=== PATIENT | female | born 1945 | race Caucasian/White ===

== ENCOUNTER → 2023-01-10 13:37 | Outpatient (BNVA) | payer MEDICARE, SELFPAY | PROVIDERS: Visit Provider Podiatrist Foot & Ankle Surgery | DX: I73.9 Peripheral vascular disease, unspecified (principal); B35.1 Tinea unguium; L84 Corns and callosities; R60.9 Edema, unspecified | CPT/HCPCS: 11055; 99204 ==

== ENCOUNTER → 2023-02-02 14:39 | Outpatient (BNVA) | payer MEDICARE, SELFPAY | PROVIDERS: Visit Provider Internal Medicine | DX: R07.9 Chest pain, unspecified (principal); I48.91 Unspecified atrial fibrillation | CPT/HCPCS: 93005; 99204 ==

== ENCOUNTER → 2023-02-09 14:30 | Outpatient (BNVA) | payer MEDICARE, SELFPAY | PROVIDERS: Referring Provider Dermatology; Visit Provider Specialist | DX: M17.12 Unilateral primary osteoarthritis, left knee | CPT/HCPCS: 73562; 99204 ==

== ENCOUNTER → 2023-03-30 09:38 | Outpatient (BNVA) | payer MEDICARE, SELFPAY | PROVIDERS: PCP Family Medicine; Visit Provider Internal Medicine Rheumatology | DX: M05.79 Rheumatoid arthritis with rheumatoid factor of multiple sites without organ or systems involvement (principal); Z79.899 Other long term (current) drug therapy; Z71.85 Encounter for immunization safety counseling | CPT/HCPCS: 99204 ==

== ENCOUNTER 2023-05-21 06:31 | Inpatient (IN) | payer MEDICARE, SELFPAY ==
[2023-05-21] VITALS (13 sets, daily range): BP systolic 108–135; BP diastolic 71–96; PULSE 73–145; RESP 16–27; TEMP 36.3–37.2; O2SAT 88–97; BMI 44.1
--- NOTE | 2023-05-21 06:33 | XRR_ITS ---
PROCEDURE INFORMATION: Exam: XR Chest Exam date and time: 05/21/2023 6:50 AM Age: 78 years old Clinical indication: Cough and dyspnea; Additional info: Dyspnea/cough TECHNIQUE: Imaging protocol: Radiologic exam of the chest. Views: 1 view. COMPARISON: No relevant prior studies available. FINDINGS: Lungs: See Soft tissues finding. Pleural spaces: Unremarkable. No pleural effusion. No pneumothorax. Heart/Mediastinum: Heart and mediastinum are normal. Bones/joints: Unremarkable. Soft tissues: Elevated left hemidiaphragm versus large hernia. Atelectasis or infiltrate in the left lower lobe. XR/XR chest 1V portable [id number] IMPRESSION: Large diaphragmatic hernia probably present.
--- NOTE | 2023-05-21 06:34 | W.ED.GENADLT ---
HPI - General Adult General: Chief complaint: Arrhythmia/Palpitations Stated complaint: AMS Time Seen by Provider: 05/21/23 06:33 Source: patient Mode of arrival: EMS History of Present Illness: 78-year-old female history of atrial fibrillation and congestive heart failure presents emergency room via EMS from a [facility]. Heart rates in the 140s consistently. She is awake and alert was able to tell me the last couple of days she has been increasingly short of breath [facility] found her to have an oxygen saturation of 88% on room air and then decreased even further to 7576%. She was given 3 L by nasal cannula and improved to 92% she is now requiring 6 L by nasal cannula to maintain sats at 92 to 93%. Patient is awake and alert she denies any chest pain. She has been receiving her usual metoprolol on a regular basis and despite this is now in A-fib with RVR. Onset (ago): day(s) Relieving factors: other (Oxygen) Exacerbating factors: none Associated symptoms: Reports dyspnea, malaise, short of breath and weakness; Deny chest pain, confusion, cough, diaphoresis, decreased appetite, fevers/chills, headache(s), nausea, rash, palpitations, seizures, syncope, vomiting or other Review of Systems Const: Reports: fatigue and malaise; Denies: fever(s), chills or diaphoresis Card: Reports: dyspnea on exertion and orthopnea; Denies: chest pain, palpitations or syncope Resp: Reports: dyspnea GI: Denies: abdominal pain, nausea or vomiting : Denies: dysuria, urinary frequency or urinary urgency Musc: Denies: neck pain or back pain Skin/Breast: Denies: rash Neuro: Denies: headache(s) or confusion [facility] ED PFSH: Medical History (Updated 05/21/23 @ 09:13 by Chirag Kelsey DO) (HFpEF) heart failure with preserved ejection fraction Arthritis Atrial fibrillation Hiatal hernia High risk medication use History of hypertension Hyperlipidemia Immunization counseling Seropositive rheumatoid arthritis of multiple sites Surgical History H/O splenectomy History of hip replacement Family History Other CAD (coronary artery disease) Cancer Hyperlipidemia Denies family history of Rheumatoid arthritis Diabetes Lupus Lung disease Hypertension Stroke Physical Exam Const: GENERAL APPEARANCE: cooperative and comfortable ORIENTATION/CONSCIOUSNESS: Yes awake, Yes oriented to person, Yes oriented to place and Yes oriented to time HENMT: COMMON NORMALS: normocephalic, atraumatic and hearing grossly normal bilaterally HEAD & SCALP: normocephalic and atraumatic Resp: COMMON NORMALS: normal respiratory effort, No retractions and No use of accessory muscles AUSCULTATION: crackles Cardio: RATE: tachycardic RHYTHM: abnormal rhythm irregularly irregular GI: COMMON NORMALS: Soft to palpation and No hepatosplenomegaly present AUSCULTATION: Yes normoactive bowel sounds PALPATION: Yes Soft to palpation, No Tenderness to palpation present (GI), No Guarding due to palpation present (GI) and Yes No hepatosplenomegaly present Extremity: COMMON NORMALS: normal to inspection, capillary refill normal, no clubbing, cyanosis or edema, no calf tenderness and no pedal edema Neuro: SENSORIUM/ORIENTATION: Yes oriented to person, Yes oriented to place and Yes oriented to time Skin: COMMON NORMALS: no rashes or lesions noted GENERAL SKIN EXAM: no rashes or lesions noted Course Vital Signs: Vital signs: Vital Signs Temperature 97.4 F L 05/21/23 06:32 Pulse Rate 74 05/21/23 08:13 Respiratory Rate 18 05/21/23 08:13 Blood Pressure 117/96 05/21/23 06:43 Pulse Oximetry 97 05/21/23 08:13 Oxygen Delivery Me thod Oxymask 05/21/23 08:13 Oxygen Flow Rate 6 05/21/23 06:43 [facility] - General Adult Medical Decision Making A-fib with RVR as well as acute kidney injury. She is also developed some heart failure second to Ho to her A-fib. She is having increased oxygen requirement. We will admit continue on Cardizem drip which now has rate controlled discussed Dr. Mcfarland orders written Medical Records I reviewed the patient's medical records. Lab Data I reviewed the patient's lab results. 05/21/23 06:40 05/21/23 06:40 Radiology Impressions Chest X-Ray 05/21/23 06:33 IMPRESSION: Large diaphragmatic hernia probably present. Laboratory Results WBC 15.31 10^3/uL (3.29-11.43) H 05/21/23 06:40 RBC 4.81 10^6/uL (3.85-5.65) 05/21/23 06:40 Hgb 14.70 g/dL (11.27-16.99) 05/21/23 06:40 Hct 47.4 % (36-47) H 05/21/23 06:40 MCV 98.5 fl (85-98) H 05/21/23 06:40 MCH 30.6 pg (27-33) 05/21/23 06:40 MCHC 31.0 g/dL (30-55) 05/21/23 06:40 RDW 13.8 % (12.1-15.1) 05/21/23 06:40 Plt Count 283 10^3/cmm (157-399) 05/21/23 06:40 MPV 11.0 fL (7.4-10.4) H 05/21/23 06:40 Neut % (Auto) 81.1 % 05/21/23 06:40 Lymph % (Auto) 9.1 % 05/21/23 06:40 [place] % (Auto) 8.9 % 05/21/23 06:40 Eos % (Auto) 0.1 % 05/21/23 06:40 Baso % (Auto) 0.2 % 05/21/23 06:40 Neut # (Auto) 12.42 10^3/uL (1.8-7.7) H 05/21/23 06:40 Lymph # (Auto) 1.4 10^3/uL (0.8-4.8) 05/21/23 06:40 [place] # (Auto) 1.4 10^3/uL (0.2-0.9) H 05/21/23 06:40 Eos # (Auto) 0.0 10^3/uL (0.0-0.8) 05/21/23 06:40 Baso # (Auto) 0.0 10^3/uL (0.0-0.1) 05/21/23 06:40 Nucleated RBC % (auto) 0.7 % 05/21/23 06:40 Nucleated RBCs # 0.1 /100WBC 05/21/23 06:40 Sodium 137 mmol/L (136-145) 05/21/23 06:40 Potassium 5.5 mmol/L (3.5-5.1) H 05/21/23 06:40 Chloride 94 mmol/L (98-107) L 05/21/23 06:40 Carbon Dioxide 30 mmol/L (22-29) H 05/21/23 06:40 Anion Gap 18.5 (5-19) 05/21/23 06:40 BUN 43 mg/dL (8-23) H 05/21/23 06:40 Creatinine 2.8 mg/dL (0.5-0.9) H 05/21/23 06:40 GFR Calculation Not Reportable 05/21/23 06:40 Glucose 106 mg/dL (65-115) 05/21/23 06:40 Calculated Osmolality 295 mOsm/kg (285-295) 05/21/23 06:40 Calcium 9.1 mg/dL (8.5-10.5) 05/21/23 06:40 Total Bilirubin 0.5 mg/dL (0.15-1.2) 05/21/23 06:40 AST 347 U/L (0-32) H 05/21/23 06:40 ALT 316 U/L (0-33) H 05/21/23 06:40 Alkaline Phosphatase 105 U/L (35-105) 05/21/23 06:40 Total Protein 7.2 g/dL (6.6-8.7) 05/21/23 06:40 Albumin 3.8 g/dL (3.5-5.2) 05/21/23 06:40 Globulin 3.4 g/dL (1.3-4.6) 05/21/23 06:40 Urine Color Dark yellow (Yellow) 05/21/23 08:17 Urine Appearance Sl hazy (CLEAR) A 05/21/23 08:17 Urine pH 5 (5-7) 05/21/23 08:17 Ur Specific [place] 1.025 (1.005-1.030) 05/21/23 08:17 Urine Protein Trace (Negative) 05/21/23 08:17 Urine Glucose (UA) Norm (Normal) 05/21/23 08:17 Urine Ketones 1+ (Negative) H 05/21/23 08:17 Urine Blood Neg (Negative) 05/21/23 08:17 Urine Nitrate Negative (Negative) 05/21/23 08:17 Urine Bilirubin 2+ (Negative) H 05/21/23 08:17 Urine Urobilinogen 4 mg/dL (Negative) H 05/21/23 08:17 Ur Leukocyte Esterase Trace (Negative) H 05/21/23 08:17 Urine RBC 0-4 /hpf (0-2) H 05/21/23 08:17 Urine WBC 5-10 /hpf (0-5) H 05/21/23 08:17 Ur Squamous Epith Cells 10-15 /hpf (0-5) H 05/21/23 08:17 Calcium Oxalate Crystal 5-10 /hpf H 05/21/23 08:17 Amorphous Sediment 2+ /hpf 05/21/23 08:17 Urine Bacteria 1+ /hpf (NONE) H 05/21/23 08:17 Hyaline Casts 5-10 /lpf H 05/21/23 08:17 Urine Yeast 1+ /hpf H 05/21/23 08:17 All radiology interpretation(s) finalized by discharge Discharge Plan Discharge Patient Disposition: Admitted As Inpatient Clinical Impression: Atrial fibrillation, (HFpEF) heart failure with preserved ejection fraction, Acute kidney injury Condition: Stable Prescriptions: No Action hydrocodone-acetaminophen 10-325 mg tablet 1 tab PO Q6H potassium chloride 10 mEq tablet,ER particles/crystals 10 meq PO DAILY@08 folic acid 1 mg tablet 1 mg PO DAILY Qty: 30 3RF gabapentin 300 mg capsule 300 mg PO QID metoprolol tartrate 25 mg tablet 25 mg PO BID@08,20 apixaban 5 mg tablet 5 mg PO BID Lasix 40 mg Tablet 40 mg PO DAILY@08 loperamide [Imodium] 2 mg Capsule 2 mg PO Q6H PRN (Reason: Diarrhea) ondansetron HCl [Zofran] 4 mg Tablet 4 mg PO Q4H PRN (Reason: Nausea And Vomiting) Robitussin 100 mg/5 mL Liquid 200 mg PO Q4H PRN (Reason: Cough) triamcinolone acetonide 0.1 % Cream 1 applic TOPICAL BID Rx Instructions: aaa of lle melatonin 1 mg Tablet 1 mg PO BEDTIME methotrexate sodium 2.5 mg tablet 20 mg PO Q7D Rx Instructions: (8 tabs) hydroxychloroquine 200 mg tablet 200 mg PO DAILY@08 multivitamin Tablet 1 tab PO DAILY@08 albuterol sulfate 90 mcg/actuation Hfa Aerosol Inhaler 2 puff INHALATION Q6H PRN (Reason: Shortness Of Breath) silver sulfadiazine 1 % Cream 1 applic TOPICAL DAILY@08 Milk of Magnesia 400 mg/5 mL Suspension 30 ml PO DAILY PRN (Reason: Constipation) Dulcolax (bisacodyl) 10 mg Suppository 10 mg WV DAILY PRN (Reason: Constipation) Fleet Enema 19-7 gram/118 mL Enema 118 ml WV DAILY PRN (Reason: Constipation) Calcium 600 + D(3) 600 mg-10 mcg (400 unit) Tablet 1 tab PO DAILY@08 Referrals: Cali Hill Jr, MD [Primary Care Provider] - Coding Level of Care Code ED Therapeutic Radiologist for Mickie Gale
--- NOTE | 2023-05-21 06:45 | ECG_ITS ---
[facility] Test Date: 2023-05-21 Pat Name: Mavis Simmons Department: Room: Gender: Female Installation Superintendent: : 1945 Requested By: Chirag Brown Order Number: [id number] Ely MD: Tiago Segovia M.D. Measurements Intervals [place] Rate: 143 P: 265 NC: 153 QRS: 44 QRSD: 110 T: 0 QT: 208 QTc: 321 Interpretive Statements Possible atrial flutter with a 2-1 block SEPTAL MYOCARDIAL INFARCTION , PROBABLY OLD [40+ ms Q WAVE IN V1/V2] ST DEPRESSION, CONSIDER SUBENDOCARDIAL INJURY [0.1+ mV ST DEPRESSION] Compared to ECG 02/02/2023 14:51:19 Myocardial infarct finding now present ST (T wave) deviation now present Atrial fibrillation no longer present Ventricular premature complex(es) no longer present Aberrant conduction of supraventricular beat(s) no longer present Electronically Signed On 05-21-2023 15:38:10 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 [email or web address]
[2023-05-21 07:01] LABS: Basophils % 0.2 %; Eosinophils % 0.1 %; Hematocrit 47.4 % (36-47); Lymphocytes # 1.4 10^3/uL (0.8-4.8); Lymphocytes % 9.1 %; Mean Corpuscular Hemoglobin 30.6 pg (27-33); Mean Corpuscular Volume 98.5 fl (85-98); Monocytes # 1.4 10^3/uL (0.2-0.9); Monocytes % 8.9 %; Neutrophils # 12.42 10^3/uL (1.8-7.7); Neutrophils % 81.1 %; Nucleated Red Blood Cells # 0.1 /100WBC; Nucleated Red Blood Cells % 0.7 %; Platelet Count 283 10^3/cmm (157-399); Red Blood Count 4.81 10^6/uL (3.85-5.65); Red Cell Distribution Width 13.8 % (12.1-15.1); White Blood Count 15.31 10^3/uL (3.29-11.43)
[2023-05-21] MEDS: dilTIAZem 5 mg/mL SDV 5 mL 10 MG IVP (07:08)
[2023-05-21 07:09] LABS: Alanine Aminotransferase 316 U/L (0-33); Albumin Level 3.8 g/dL (3.5-5.2); Alkaline Phosphatase 105 U/L (35-105); Anion Gap 18.5 (5-19); Aspartate Amino Transferase 347 U/L (0-32); Blood Urea Nitrogen 43 mg/dL (8-23); Calcium 9.1 mg/dL (8.5-10.5); Carbon Dioxide 30 mmol/L (22-29); Chloride 94 mmol/L (98-107); Globulin 3.4 g/dL (1.3-4.6); Glucose 106 mg/dL (65-115); Osmolality Calculated 295 mOsm/kg (285-295); Potassium 5.5 mmol/L (3.5-5.1); Sodium 137 mmol/L (136-145); Total Bilirubin 0.5 mg/dL (0.15-1.2); Total Protein 7.2 g/dL (6.6-8.7)
[2023-05-21] MEDS: dilTIAZem 100 MG in sodium chloride 0.9% (add-van) 100 ML IV (07:09)
[2023-05-21 07:18] LABS: Creatinine Clr Calc Pharmacy 21.7595
[2023-05-21] MEDS: calcium chloride 10% Syr 10 mL 1 GM IVP (07:35)
--- NOTE | 2023-05-21 07:35 | PC.PHAR ---
pt is from [facility]-evaristo manzo nurse at [facility] states the pt has a norco 10-325 today @ 05:05 and metoprolol tartrate 25mg today @05:20-medications entered are from what chip olson sent on the pts sep and tar
[2023-05-21 08:43] LABS: Add Urine Microscopic? YES; Bacteria Urine 1+ /hpf; Bilirubin Urine 2+ (Negative); Blood Urine Neg (Negative); Glucose Urine UA Norm (Normal); Ketones Urine 1+ (Negative); Leukocyte Esterase Urine Trace (Negative); Nitrate Urine Negative (Negative); Protein Urine Trace (Negative); RBC Urine 0-4 /hpf (0-2); Specific Gravity, Urine 1.025 (1.005-1.030); Urine Appearance SL Hazy (CLEAR); Urine Color Dark Yellow (Yellow); Urobilinogen Urine 4 mg/dL (Negative); pH Urine 5 (5-7)
[2023-05-21 08:44] LABS: Add Urine Culture? Yes; Amorphous Sediment Urine 2+ /hpf
--- NOTE | 2023-05-21 09:51 | P.HP_ITS ---
Providers/Chief Complaint Admitting Physician: Juanito Mcfarland MD Primary Care Provider: Cali Hill Jr, MD Chief Complaint: AMS History of Present Illness Mavis Simmons is a 78 year old female with history of diastolic CHF, does not use oxygen, [place] resident, chronic history of edema of legs, venous dermatitis, without any history of dementia, DNR/DNI, Presented to the hospital for confusion lethargy and fatigue. Patient has had 2 episode of emesis Patient is not able provide detailed accurate history, she is very lethargic and confused, as per the family patient is very active and has sharp memory, no recent fever, patient is denying diarrhea, last bowel movement was on Tuesday, she is denying abdominal pain but endorsing vomiting, denying chest pain, fever, productive cough. I have requested ABG, patient has asterixis, clinical signs of fluid overload present, As per the family lower extremity edema is better from her baseline Hyperkalemia acute on chronic kidney disease on work-up She is DNR/DNI, documentations reviewed from the group home Review of Systems General: Reports: ROS unobtainable due to medical condition Medications/Allergies Home Medications Medication Instructions Recorded Confirmed Last Taken Type apixaban 5 mg tablet 5 mg PO BID 01/10/23 05/21/23 05/20/23 History gabapentin 300 mg capsule 300 mg PO QID 01/10/23 05/21/23 05/20/23 History metoprolol tartrate 25 mg tablet 25 mg PO BID@08,01/10/23 05/21/23 05/21/23 05:20 History hydrocodone 10 mg-acetaminophen 1 tab PO Q6H 02/02/23 05/21/23 05/21/23 05:05 History 325 mg tablet potassium chloride 10 mEq 10 meq PO DAILY@08 02/02/23 05/21/23 05/20/23 History tablet,extended release(part/cryst) folic acid 1 mg tablet 1 mg PO DAILY #30 tabs 03/30/23 05/21/23 05/20/23 Rx albuterol sulfate 90 mcg/actuation 2 puff inhalation Q6H PRN 05/21/23 05/21/23 Unknown History aerosol inhaler Shortness Of Breath bisacodyl 10 mg rectal suppository 10 mg IA DAILY PRN Constipation 05/21/23 05/21/23 Unknown History (Dulcolax (bisacodyl)) calcium carbonate 600 mg-vitamin 1 tab PO DAILY@08 05/21/23 05/21/23 05/20/23 History D3 10 mcg (400 unit) tablet (Calcium 600 + D(3)) furosemide 40 mg tablet (Lasix) 40 mg PO DAILY@08 05/21/23 05/21/23 05/20/23 History guaifenesin 100 mg/5 mL oral liquid 200 mg PO Q4H PRN Cough 05/21/23 05/21/23 Unknown History hydroxychloroquine 200 mg tablet 200 mg PO DAILY@08 05/21/23 05/21/23 05/20/23 History loperamide 2 mg capsule 2 mg PO Q6H PRN Diarrhea 05/21/23 05/21/23 05/18/23 History magnesium hydroxide 400 mg/5 mL 30 ml PO DAILY PRN Constipation 05/21/23 05/21/23 Unknown History oral suspension (Milk of Magnesia) melatonin 1 mg tablet 1 mg PO BEDTIME 05/21/23 05/21/23 05/20/23 History methotrexate sodium 2.5 mg tablet 20 mg PO Q7D Rheumatoid Arthritis 05/21/23 05/21/23 05/18/23 History multivitamin 1 tab PO DAILY@05/21/23 05/21/23 05/20/23 History ondansetron HCl 4 mg tablet 4 mg PO Q4H PRN Nausea And Vomiting 05/21/23 05/21/23 05/19/23 History silver sulfadiazine 1 % topical 1 applic topical DAILY@05/21/23 05/21/23 05/19/23 History cream sodium phosphates 19 gram-7 118 ml IA DAILY PRN Constipation 05/21/23 05/21/23 Unknown History gram/118 mL enema (Fleet Enema) triamcinolone acetonide 0.1 % 1 applic topical BID 05/21/23 05/21/23 05/20/23 History topical cream Allergies Allergy/AdvReac Type Severity Reaction Status Date / Time No Known Allergies Allergy Verified 05/21/23 07:35 PFSH Acute PFSH: Medical History (HFpEF) heart failure with preserved ejection fraction Arthritis Atrial fibrillation Hiatal hernia High risk medication use History of hypertension Hyperlipidemia Immunization counseling Seropositive rheumatoid arthritis of multiple sites Surgical History H/O splenectomy History of hip replacement Family History Other CAD (coronary artery disease) Cancer Hyperlipidemia Denies family history of Rheumatoid arthritis Diabetes Lupus Lung disease Hypertension Stroke Vitals/I&O/Wt Last Vital Signs Temp 97.4 F L 05/21/23 06:32 Pulse 74 05/21/23 08:13 Resp 18 05/21/23 08:13 BP 117/96 05/21/23 06:43 Pulse Ox 97 05/21/23 08:13 O2 Del Method Oxymask 05/21/23 08:13 O2 Flow Rate 6 05/21/23 06:43 Weight last 48 hrs Weight 119.295 kg Physical Exam Narrative: Morbidly obese Currently on 2 L GCS 15 Nonfocal neuro exam Positive asterixis Able to follow verbal commands Fatigued and lethargic Lower extremity edema 2+ Abdomen distended however soft Patient is burping a lot Hemodynamic stable A-fib RVR Urinary Catheter Management: Jimenez: Cath Placed During This Visit: yes Urinary Catheter Date of Insertion: 05/21/23 Urinary Catheter Time of Insertion: 08:21 Data 05/21/23 06:40 05/21/23 06:40 A&P Assessment and plan (1) Acute kidney injury superimposed on chronic kidney disease: (2) Atrial fibrillation: (3) (HFpEF) heart failure with preserved ejection fraction: (4) Seropositive rheumatoid arthritis of multiple sites: (5) Altered mental status: (6) Metabolic encephalopathy: (7) Vomiting: Plan Acute preserved action fraction-exacerbation Start IV Lasix every 12 hours I would not give her potassium Acute on chronic kidney disease Worsening of creatinine noted Start potassium supplementation Hypokalemia likely medication induced Holding nephrotoxic agents Positive asterixis, rule out respiratory failure Requested ABG Requested CT abdomen pelvis and CT head Patient takes methotrexate and hydroxychloroquine for her arthritis Which I will put on hold because of worsening of creatinine Eliquis dose change as well A-fib RVR Currently on Cardizem drip Cardizem drip running at 5 Eliquis dose changed because of worsening creatinine Leukocytosis with nausea and vomiting will require CT abdomen pelvis without contrast Patient is DNI/DNI We will request PT as well Most information taken with the collaterals, family at the bedside Attestations Medical Necessity Statement*: More than 2 midnights anticipated Diagnoses Acute kidney injury superimposed on chronic kidney disease N17.9; N18.9 Atrial fibrillation I48.91 (HFpEF) heart failure with preserved ejection fraction I50.30 Seropositive rheumatoid arthritis of multiple sites M05.79 Altered mental status R41.82 Metabolic encephalopathy G93.41 Vomiting R11.10
--- NOTE | 2023-05-21 11:06 | USCV_ITS ---
[place], [place] Age: 78 Gender: F : 1945 Exam Date: 05/21/2023 15:21 Ordering Phys: Juanito Mcfarland MD Technologist: Gonzalo Gonzalez Exam Location: [facility] Indication: chf BP: 135 / 86 HR: 79 Rhythm: Sinus Technical Quality: Adequate MEASUREMENTS (Male / Female) Normal Values 2D ECHO LVOT Diameter 2.0 cm LV Ejection Fraction MOD 2C 58.3 % LV Ejection Fraction 2C AL 59.0 % LA Diameter 4.6 cm LA Width 3.8 cm LA Height 6.8 cm RA Width 4.0 cm RA Height 5.7 cm Aorta at Sinotubular Diameter 2.1 cm M-MODE Aortic Annulus Diameter 2.5 cm LA Ao Ratio MM 2.1 MV E Point Septal Separation 0.7 cm DOPPLER AV Peak Velocity 144.0 cm/s LVOT Peak Velocity 95.0 cm/s AV Area Cont Eq vti 2.3 cm squared AV Area Cont Eq pk 2.1 cm squared MV Peak Velocity 109.0 cm/s TR Peak Velocity 312.8 cm/s TR Peak Gradient 39.1 mmHg TR Mean Velocity 248.8 cm/s TR Mean Gradient 26.4 mmHg TR Velocity Time Integral 82.0 cm Right Atrial Pressure 8.0 mmHg Pulmonary Artery Systolic Pressu 47.1 mmHg PV Peak Velocity 71.3 cm/s RV Acceleration Time 0.1 s RV Ejection Time 0.3 s RV AcT/ET 0.4 FINDINGS Left Ventricle Normal left ventricular size and systolic function, EF 58 %. No regional wall motion abnormalities. Right Ventricle Normal right ventricular size and systolic function. Right Atrium Moderately increased right atrial size. Left Atrium Moderately increased left atrial size. Mitral Valve Thickened mitral valve. Mild mitral annular calcification. Aortic Valve Thickened aortic valve. Tricuspid Valve Moderate tricuspid valve regurgitation. Pulmonic Valve Pulmonic valve not well visualized. Pericardium Normal pericardium without effusion. Aorta Normal ascending aorta dimension. IVC Inferior vena cava not visualized. CONCLUSIONS Normal left ventricular size and systolic function, EF 58 %. No regional wall motion abnormalities. Moderate biatrial enlargement Thickened mitral valve. Mild mitral annular calcification. Thickened aortic valve. Moderate tricuspid valve regurgitation. Mild pulmonary hypertension -estimated pulmonary artery peak systolic pressure of 47 mmHg There is no pericardial effusion. There are no intracardiac masses. No similar previous studies are available for comparison Dr Tiago Segovia MD FACC (Electronically Signed) Final Date: 22 May 2023 20:28 S
[2023-05-21 11:27] LABS: Estmated Average Glucose 111; Hemoglobin A1C 5.5 % (4.0-6.0)
[2023-05-21] MEDS: sodium polystyrene sulfonate 15 gm/60 mL Btl PO (11:56)
[2023-05-21] MEDS: FUROsemide 10 mg/mL SDV 2mL 20 MG IVP ×2 (11:56→22:57)
[2023-05-21] MEDS: heparin 5,000 unit/mL INJ 1 mL 5000 UNIT SUBCUT (11:56)
[2023-05-21] MEDS: sodium chloride 0.9% 500 ML IV (11:57)
--- NOTE | 2023-05-21 12:37 | PC.NURSE ---
Spoke to Dr. Mcfarland about the Cardizem drip being at a set rate. After discussion Dr. Mcfarland gave a verbal order to turn off the Cardizem drip at this time and continue with oral metoprolol. Patient's RN Malinda notified.
[2023-05-21 14:07] LABS: ABG PH Result 7.24 (7.35-7.45); Alveolar-Arterial Oxygen Gradi 5.7 mmHg (5-10); Arterial Blood Gas Hematocrit 43.8 % (37-47); Base Excess ABG 2.4 mmol/L (-2.0-2.0); Blood Gas Allen Test Pos; Blood Gas LPM 2.5 %; Blood Gas Operator Identificat glc; Blood Gas Sample Site Radial, left; Blood Gas Sample Type Arterial; Carboxyhemoglobin 0.8 %THgb (0.4-20.1); HCO3 ABG 32.4 mmol/L (22-26); HGB O2 Sat 92.1 % (95-100); Ionized Calcium Level - ABG 1.3 mmol/L (1.1-1.4); Methemoglobin 0.7 % (0.4-1.5); Oxygen Device NC; Oxygen Saturation ABG 93.5; PO2 ABG 79.6 mmHg (80.0-100.0); PO2 FiO2 Ratio Arterial Blood 0; Potassium Level - ABG 4.5 mmol/L (3.5-5.0); Total Hemoglobin 14.3 g/dL (12-16)
[2023-05-21 15:13] LABS: NT Pro B Type Natriuretic Pept 13854 pg/mL (0-450)
[2023-05-21 16:35] LABS: Potassium 4.9 mmol/L (3.5-5.1)
[2023-05-21 17:14] LABS: ABG PH Result 7.28 (7.35-7.45); Arterial Blood Gas Hematocrit 42.5 % (37-47); Base Excess ABG 4.1 mmol/L (-2.0-2.0); Blood Gas Allen Test Pos; Blood Gas Operator Identificat glc; Blood Gas Sample Site Radial, left; Blood Gas Sample Type Arterial; HCO3 ABG 33.3 mmol/L (22-26); Oxygen Device BIPAP; PO2 ABG 87.6 mmHg (80.0-100.0); PO2 FiO2 Ratio Arterial Blood 0
--- NOTE | 2023-05-21 18:17 | PC.NURSE ---
Patient removed her oxygen and states, I just want to be left alone so I can . Explained to patient that she needs to wear her oxygen. Notified Dr. Mcfarland. He asked that she wear the Bi-pap tonight and then they will talk again in the morning. Updated patient and family. Patient agreed to wear the Bi-pap tonight.
[2023-05-21] MEDS: apixaban 5 mg Tablet 2.5 MG PO (18:41)
[2023-05-21] MEDS: metoprolol tartrate 25 mg Tablet 50 MG PO (21:41)
[2023-05-21] MEDS: piperacillin-tazobactam 3.375 GM in sodium chloride 0.9% (plus) 50 ML IV (21:42)
[2023-05-22] VITALS (16 sets, daily range): BP systolic 110–135; BP diastolic 76–84; PULSE 80–109; RESP 16–19; TEMP 36.3–36.8; O2SAT 92–96; BMI 44.2
[2023-05-22] MEDS: dilTIAZem 100 MG in sodium chloride 0.9% (add-van) 100 ML IV (00:43)
[2023-05-22] MEDS: morphine 4 mg/mL SDV 1 mL 1 MG IVP (03:07)
[2023-05-22 05:14] LABS: ABG PH Result 7.32 (7.35-7.45); Arterial Blood Gas Hematocrit 39.3 % (37-47); Base Excess ABG 8.1 mmol/L (-2.0-2.0); Blood Gas Sample Site Brachial, right; Blood Gas Sample Type Arterial; HCO3 ABG 36.7 mmol/L (22-26); Oxygen Device NC; PO2 ABG 89.7 mmHg (80.0-100.0)
[2023-05-22 05:15] LABS: ABG PCO2 70.8 mmHg (35-45)
[2023-05-22 05:59] LABS: Basophils % 0.1 %; Hematocrit 40.3 % (36-47); Lymphocytes # 1.5 10^3/uL (0.8-4.8); Lymphocytes % 12.7 %; Mean Corpuscular HGB Conc 31.5 g/dL (30-55); Mean Corpuscular Hemoglobin 30.6 pg (27-33); Mean Corpuscular Volume 97.1 fl (85-98); Mean Platelet Volume 10.7 fL (7.4-10.4); Monocytes # 1.6 10^3/uL (0.2-0.9); Monocytes % 13.6 %; Neutrophils # 8.65 10^3/uL (1.8-7.7); Neutrophils % 73.3 %; Nucleated Red Blood Cells # 0.3 /100WBC; Nucleated Red Blood Cells % 2.1 %; Platelet Count 279 10^3/cmm (157-399); Red Blood Count 4.15 10^6/uL (3.85-5.65); Red Cell Distribution Width 13.8 % (12.1-15.1); White Blood Count 11.81 10^3/uL (3.29-11.43)
[2023-05-22 06:19] LABS: Anion Gap 12.8 (5-19); Blood Urea Nitrogen 42 mg/dL (8-23); Calcium 8.8 mg/dL (8.5-10.5); Carbon Dioxide 31 mmol/L (22-29); Chloride 99 mmol/L (98-107); Glucose 110 mg/dL (65-115); Magnesium 1.9 mg/dL (1.7-2.3); Osmolality Calculated 299 mOsm/kg (285-295); Potassium 3.8 mmol/L (3.5-5.1); Sodium 139 mmol/L (136-145)
[2023-05-22] MEDS: folic acid 1 mg Tablet PO (08:42)
[2023-05-22] MEDS: sennosides-docusate Tablet 1 TAB PO (08:42)
[2023-05-22] MEDS: apixaban 5 mg Tablet 2.5 MG PO ×2 (08:42→17:28)
[2023-05-22] MEDS: metoprolol tartrate 25 mg Tablet 50 MG PO ×2 (08:42→19:57)
[2023-05-22 09:31] LABS: ABG PCO2 75.8 mmHg (35-45)
[2023-05-22 09:33] LABS: ABG PCO2 71.3 mmHg (35-45); Blood Gas CCRB Time 1718
--- NOTE | 2023-05-22 10:29 | P.PN_ITS ---
Subjective Subjective: Patient does not want to use BiPAP at all stating that she would like to go on comfort care back to group home Family at the bedside Bethany Caseyerd is the medical DPOA I did tell the patient that at this point there is no imminent signs of but it could change if she keeps refusing BiPAP, she is adamant that she would not use BiPAP at all Vitals/I&O/Wt Last Vital Signs Temp 97.4 F L 05/22/23 08:12 Pulse 96 05/22/23 08:12 Resp 18 05/22/23 08:12 BP 110/76 05/22/23 08:12 Pulse Ox 94 05/22/23 08:12 O2 Del Method Nasal Cannula 05/22/23 08:12 O2 Flow Rate 3 05/22/23 07:45 FiO2 40 05/22/23 05:20 05/21/23 05/22/23 05/22/23 22:59 06:59 14:59 Intake Total 617.833 / 1597.833 Output Total 750 / 750 900 / 1650 Balance -750 / 230 -282.167 / -52.167 Weight last 48 hrs Weight 120.656 kg Weight 120.792 kg Weight 120.202 kg Weight 119.295 kg Physical Exam Narrative: Signs of fluid load improving S1, S2 variable, A-fib RVR improved Abdomen soft Lower extremity edema improving Jimenez catheter in place Currently on 3 L Cardizem drip running at 5 Urinary Catheter Management: Jimenez: Cath Placed During This Visit: yes Urinary Catheter Date of Insertion: 05/21/23 Urinary Catheter Time of Insertion: 08:21 Data 05/22/23 05:48 05/22/23 05:48 Micro: Microbiology 05/21/23 08:17 Urine Culture - Preliminary Urine,Clean Catch Gram Negative Rods A&P Assessment and plan (1) Vomiting: (2) Metabolic encephalopathy: (3) Altered mental status: (4) Acute kidney injury superimposed on chronic kidney disease: (5) Atrial fibrillation: (6) (HFpEF) heart failure with preserved ejection fraction: (7) Seropositive rheumatoid arthritis of multiple sites: (8) Comfort measures only status: Plan Persistent hypercapnia Patient keeps refusing BiPAP Patient family both decided to go with comfort care She will go back to group home on comfort measures tomorrow We will do hospice referral DNR/DNI Discontinue Cardizem drip Discontinue Zosyn No active vomiting Attestations Medical Necessity Statement*: Discharge tomorrow back to group home on hospice Diagnoses Vomiting R11.10 Metabolic encephalopathy G93.41 Altered mental status R41.82 Acute kidney injury superimposed on chronic kidney disease N17.9; N18.9 Atrial fibrillation I48.91 (HFpEF) heart failure with preserved ejection fraction I50.30 Seropositive rheumatoid arthritis of multiple sites M05.79 Comfort measures only status Z51.5
[2023-05-22] MEDS: FUROsemide 10 mg/mL SDV 2mL 20 MG IVP ×2 (11:15→23:55)
[2023-05-22] MEDS: HYDROcodone-acetaminophen 5-325 mg Tablet 1 TAB PO (11:15)
[2023-05-22] MEDS: duloxetine 30 mg Capsule PO (11:15)
[2023-05-23 04:04] VITALS: BP 136/87; PULSE 91; RESP 16; TEMP 36.5; O2SAT 95
[2023-05-23 06:00] VITALS: PULSE 103
[2023-05-23] MEDS: metoprolol tartrate 25 mg Tablet 50 MG PO (06:20)
--- NOTE | 2023-05-23 06:21 | PC.NURSE ---
Patient's heart rate was jumping up to 130's this am but not sustaining, Dr. Forbes said to give 0800 metoprolol po early this am.
[2023-05-23 07:47] VITALS: BP 147/80; PULSE 84; RESP 19; TEMP 36.4; O2SAT 94
[2023-05-23] MEDS: HYDROcodone-acetaminophen 5-325 mg Tablet 1 TAB PO (07:59)
[2023-05-23] MEDS: duloxetine 30 mg Capsule PO (08:00)
[2023-05-23] MEDS: folic acid 1 mg Tablet PO (08:00)
[2023-05-23] MEDS: apixaban 5 mg Tablet 2.5 MG PO (08:00)
[2023-05-23] MEDS: sennosides-docusate Tablet 1 TAB PO (08:00)
--- NOTE | 2023-05-23 09:24 | PC.SOCIAL ---
Pg 2 IMM Explained to pt Pg 2 IMM. No questions voiced. Provided pt a copy. Initialed, dated, & timed a copy & placed in chart.
[2023-05-23 09:30] VITALS: PULSE 80; RESP 18; O2SAT 95
--- NOTE | 2023-05-23 10:01 | PM.DCS ---
Discharge Providers Date of Admission: 05/21/23 09:08 Date of Discharge: May 23, 2023 Attending Provider at Admission: Juanito Mcfarland MD Attending Provider at Discharge: Stacia Perez MD Primary Care Provider: Cali Hill Jr, MD Diagnoses at Discharge Discharge Diagnosis (1) Vomiting: Status: Acute (2) Metabolic encephalopathy: Status: Acute (3) Altered mental status: Status: Acute (4) Acute kidney injury superimposed on chronic kidney disease: Status: Acute (5) Atrial fibrillation: Status: Acute (6) (HFpEF) heart failure with preserved ejection fraction: Status: Acute (7) Seropositive rheumatoid arthritis of multiple sites: Status: Acute (8) Comfort measures only status: Status: Acute Reason for Visit Reason for Visit: AMS Hospital Course Hospital Course Patient presented with hypoxic respiratory failure CO2 narcosis.? Heart failure preserved ejection fraction.? She has persistent hypercapnia.? Patient refused to wear BiPAP.? Patient and family were decided to start comfort measures.? Patient's daughter, sister and niece in the room were all in agreement.? Patient states she would like to be comfortable and she does not want to wear the oxygen as well.? Measures started.? Patient will be discharged on hospice Physical Exam Narrative: says she wants to be comfortable S1, S2 variable, Abdomen soft ronchi b/l Jimenez catheter in place Currently on 3 L Urinary Catheter Management: Jimenez: Cath Placed During This Visit: yes Urinary Catheter Date of Insertion: 05/21/23 Urinary Catheter Time of Insertion: 08:21 Discharge Data Studies Completed and Pending Completed Studies During Hospitalization Category Date Time Status XR chest 1V portable [id number] Stat Exams 05/21/23 06:33 Completed CV. echo complete* [id number] Routine Ultrasound 05/21/23 11:06 Completed Pending at discharge Category Date Time Status Urine Culture Stat Lab 05/21/23 08:17 Results Radiology Impressions Chest X-Ray 05/21/23 06:33 IMPRESSION: Large diaphragmatic hernia probably present. Laboratory Results WBC 11.81 10^3/uL (3.29-11.43) H 05/22/23 05:48 RBC 4.15 10^6/uL (3.85-5.65) 05/22/23 05:48 Hgb 12.70 g/dL (11.27-16.99) 05/22/23 05:48 Hct 40.3 % (36-47) 05/22/23 05:48 MCV 97.1 fl (85-98) 05/22/23 05:48 MCH 30.6 pg (27-33) 05/22/23 05:48 MCHC 31.5 g/dL (30-55) 05/22/23 05:48 RDW 13.8 % (12.1-15.1) 05/22/23 05:48 Plt Count 279 10^3/cmm (157-399) 05/22/23 05:48 MPV 10.7 fL (7.4-10.4) H 05/22/23 05:48 Neut % (Auto) 73.3 % 05/22/23 05:48 Lymph % (Auto) 12.7 % 05/22/23 05:48 [place] % (Auto) 13.6 % 05/22/23 05:48 Eos % (Auto) 0.0 % 05/22/23 05:48 Baso % (Auto) 0.1 % 05/22/23 05:48 Neut # (Auto) 8.65 10^3/uL (1.8-7.7) H 05/22/23 05:48 Lymph # (Auto) 1.5 10^3/uL (0.8-4.8) 05/22/23 05:48 [place] # (Auto) 1.6 10^3/uL (0.2-0.9) H 05/22/23 05:48 Eos # (Auto) 0.0 10^3/uL (0.0-0.8) 05/22/23 05:48 Baso # (Auto) 0.0 10^3/uL (0.0-0.1) 05/22/23 05:48 Nucleated RBC % (auto) 2.1 % 05/22/23 05:48 Nucleated RBCs # 0.3 /100WBC 05/22/23 05:48 Specimen Type Arterial 05/22/23 05:03 Sample Site Brachial, right 05/22/23 05:03 ABG pH 7.32 (7.35-7.45) L 05/22/23 05:03 ABG pCO2 70.8 mmHg (35-45) H* 05/22/23 05:03 ABG pO2 89.7 mmHg (80.0-100.0) 05/22/23 05:03 ABG PO2/FiO2 Ratio 0 05/21/23 17:02 ABG HCO3 36.7 mmol/L (22-26) H 05/22/23 05:03 ABG O2 Saturation 93.5 05/21/23 13:55 ABG Base Excess 8.1 mmol/L (-2.0-2.0) H 05/22/23 05:03 Scar Test N/a 05/22/23 05:03 A-a O2 Gradient 5.7 mmHg (5-10) 05/21/23 13:55 Hematocrit 39.3 % (37-47) 05/22/23 05:03 Hgb O2 Saturation 92.1 % (95-100) L 05/21/23 13:55 Carboxyhemoglobin 0.8 %THgb (0.4-20.1) 05/21/23 13:55 Methemoglobin 0.7 % (0.4-1.5) 05/21/23 13:55 Total Hemoglobin 14.3 g/dL (12-16) 05/21/23 13:55 Sodium 137.0 mmol/L (131-143) 05/21/23 13:55 Potassium 4.5 mmol/L (3.5-5.0) 05/21/23 13:55 Glucose 108.0 mg/dL (70-115) 05/21/23 13:55 Ionized Calcium 1.3 mmol/L (1.1-1.4) 05/21/23 13:55 O2 Delivery Device Nc 05/22/23 05:03 O2 Liters/Min 4.0 % 05/22/23 05:03 FiO2 40.0 % 05/21/23 17:02 PEEP 8.0 cmH20 05/21/23 17:02 Litigation Secretary ID [email or web address] 05/22/23 05:03 Blood Gas Notified Time 1718 05/21/23 17:02 Sodium 139 mmol/L (136-145) 05/22/23 05:48 Potassium 3.8 mmol/L (3.5-5.1) 05/22/23 05:48 Chloride 99 mmol/L (98-107) 05/22/23 05:48 Carbon Dioxide 31 mmol/L (22-29) H 05/22/23 05:48 Anion Gap 12.8 (5-19) 05/22/23 05:48 BUN 42 mg/dL (8-23) H 05/22/23 05:48 Creatinine 1.1 mg/dL (0.5-0.9) H 05/22/23 05:48 GFR Calculation Not Reportable 05/22/23 05:48 Glucose 110 mg/dL (65-115) 05/22/23 05:48 Estimat Average Glucose 111 05/21/23 06:40 Hemoglobin A1c 5.5 % (4.0-6.0) 05/21/23 06:40 Calculated Osmolality 299 mOsm/kg (285-295) H 05/22/23 05:48 Calcium 8.8 mg/dL (8.5-10.5) 05/22/23 05:48 Magnesium 1.9 mg/dL (1.7-2.3) 05/22/23 05:48 Total Bilirubin 0.5 mg/dL (0.15-1.2) 05/21/23 06:40 AST 347 U/L (0-32) H 05/21/23 06:40 ALT 316 U/L (0-33) H 05/21/23 06:40 Alkaline Phosphatase 105 U/L (35-105) 05/21/23 06:40 NT-Pro-B Natriuret Pep 58205 pg/mL (0-450) H 05/21/23 06:40 Total Protein 7.2 g/dL (6.6-8.7) 05/21/23 06:40 Albumin 3.8 g/dL (3.5-5.2) 05/21/23 06:40 Globulin 3.4 g/dL (1.3-4.6) 05/21/23 06:40 Urine Color Dark yellow (Yellow) 05/21/23 08:17 Urine Appearance Sl hazy (CLEAR) A 05/21/23 08:17 Urine pH 5 (5-7) 05/21/23 08:17 Ur Specific [place] 1.025 (1.005-1.030) 05/21/23 08:17 Urine Protein Trace (Negative) 05/21/23 08:17 Urine Glucose (UA) Norm (Normal) 05/21/23 08:17 Urine Ketones 1+ (Negative) H 05/21/23 08:17 Urine Blood Neg (Negative) 05/21/23 08:17 Urine Nitrate Negative (Negative) 05/21/23 08:17 Urine Bilirubin 2+ (Negative) H 05/21/23 08:17 Urine Urobilinogen 4 mg/dL (Negative) H 05/21/23 08:17 Ur Leukocyte Esterase Trace (Negative) H 05/21/23 08:17 Urine RBC 0-4 /hpf (0-2) H 05/21/23 08:17 Urine WBC 5-10 /hpf (0-5) H 05/21/23 08:17 Ur Squamous Epith Cells 10-15 /hpf (0-5) H 05/21/23 08:17 Calcium Oxalate Crystal 5-10 /hpf H 05/21/23 08:17 Amorphous Sediment 2+ /hpf 05/21/23 08:17 Urine Bacteria 1+ /hpf (NONE) H 05/21/23 08:17 Hyaline Casts 5-10 /lpf H 05/21/23 08:17 Urine Yeast 1+ /hpf H 05/21/23 08:17 Vitals Last Vital Signs Temp 97.5 F L 05/23/23 07:47 Pulse 80 05/23/23 09:30 Resp 18 05/23/23 09:30 BP 147/80 05/23/23 07:47 Pulse Ox 95 05/23/23 09:30 O2 Del Method Nasal Cannula 05/23/23 09:30 O2 Flow Rate 3 05/23/23 09:30 FiO2 40 05/22/23 05:20 Discharge Plan Discharge Patient Disposition: Hospice - Medical Facility Condition: Fair Prescriptions: Discontinued hydrocodone-acetaminophen 10-325 mg tablet 1 tab PO Q6H potassium chloride 10 mEq tablet,ER particles/crystals 10 meq PO DAILY@08 folic acid 1 mg tablet 1 mg PO DAILY Qty: 30 3RF gabapentin 300 mg capsule 300 mg PO QID metoprolol tartrate 25 mg tablet 25 mg PO BID@08,20 apixaban 5 mg tablet 5 mg PO BID furosemide [Lasix] 40 mg Tablet 40 mg PO DAILY@08 loperamide [Imodium] 2 mg Capsule 2 mg PO Q6H PRN (Reason: Diarrhea) ondansetron HCl [Zofran] 4 mg Tablet 4 mg PO Q4H PRN (Reason: Nausea And Vomiting) guaifenesin [Robitussin] 100 mg/5 mL Liquid 200 mg PO Q4H PRN (Reason: Cough) triamcinolone acetonide 0.1 % Cream 1 applic TOPICAL BID Rx Instructions: aaa of lle melatonin 1 mg Tablet 1 mg PO BEDTIME methotrexate sodium 2.5 mg tablet 20 mg PO Q7D Rx Instructions: (8 tabs) hydroxychloroquine 200 mg tablet 200 mg PO DAILY@08 multivitamin Tablet 1 tab PO DAILY@08 albuterol sulfate 90 mcg/actuation Hfa Aerosol Inhaler 2 puff INHALATION Q6H PRN (Reason: Shortness Of Breath) silver sulfadiazine 1 % Cream 1 applic TOPICAL DAILY@08 magnesium hydroxide [Milk of Magnesia] 400 mg/5 mL Suspension 30 ml PO DAILY PRN (Reason: Constipation) bisacodyl [Dulcolax (bisacodyl)] 10 mg Suppository 10 mg UT DAILY PRN (Reason: Constipation) Fleet Enema 19-7 gram/118 mL Enema 118 ml UT DAILY PRN (Reason: Constipation) calcium carbonate-vitamin D3 [Calcium 600 + D(3)] 600 mg-10 mcg (400 unit) Tablet 1 tab PO DAILY@08 Discharge Orders: Discharge Order (Routine); Ordered 05/23/23 Ordered By: Stacia Perez Referrals: [facility] [Outside] [facility] [Outside] Cali Hill Jr, MD [Primary Care Provider] - Patient Instructions: Hospice Care (GEN) Activity Restrictions/Additional Instructions: Comfort Measures Discharge Attestations Time Spent in Discharge Care*: greater than 30 min Quality Metrics Clinical Quality Measures [ No reported AMI, CVA or VTE this stay] Coding Level of Care Code Acute Code for Chg Fwd Diagnoses Vomiting R11.10 Metabolic encephalopathy G93.41 Altered mental status R41.82 Acute kidney injury superimposed on chronic kidney disease N17.9; N18.9 Atrial fibrillation I48.91 (HFpEF) heart failure with preserved ejection fraction I50.30 Seropositive rheumatoid arthritis of multiple sites M05.79 Comfort measures only status Z51.5
[2023-05-23] MEDS: morphine 10 mg/0.5 mL oral liq UD SUBLINGUAL (10:57)
[2023-05-23] MEDS: LORazepam 2 mg/mL INJ 1 mL 0.5 MG IM (10:57)
[2023-05-23 12:15] LABS: SARS Covid-2 Antigen negative (Negative)
[2023-05-23 12:58] VITALS: BP 165/94; PULSE 93; RESP 19; TEMP 36.1; O2SAT 92
[2023-05-23 14:48] VITALS: BP 165/94; PULSE 93; RESP 19; TEMP 36.1; O2SAT 92
== END 2023-05-23 14:48 | disposition hospice, inpatient (51) | DRG 189 ==
LOC: ER 09:13 → MEDSURG 09:32
PROVIDERS: Admitting Provider Internal Medicine; Emergency Provider Family Medicine; PCP Family Medicine; Visit Provider Internal Medicine
DX: J96.92 Respiratory failure, unspecified with hypercapnia (principal); G93.41 Metabolic encephalopathy; I50.33 Acute on chronic diastolic (congestive) heart failure; I13.0 Hypertensive heart and chronic kidney disease with heart failure and stage 1 through stage 4 chronic kidney disease, or unspecified chronic kidney disease; N17.9 Acute kidney failure, unspecified; J96.91 Respiratory failure, unspecified with hypoxia; Z53.29 Procedure and treatment not carried out because of patient's decision for other reasons; N18.9 Chronic kidney disease, unspecified; E78.5 Hyperlipidemia, unspecified; M05.89 Other rheumatoid arthritis with rheumatoid factor of multiple sites; R60.0 Localized edema; Z66 Do not resuscitate; Z51.5 Encounter for palliative care; E87.5 Hyperkalemia; R11.10 Vomiting, unspecified; I48.91 Unspecified atrial fibrillation
CPT/HCPCS: 36415; 36600; 51702; 71045; 80048; 80051; 80053; 81001; 82330; 82803; 82805; 83036; 83735; 83880; 84132; 85025; 87077; 87086; 87186; 87426; 93005; 93306; 94660; 96365; 96366; 96372; 96375; 99285; J1644; J1940; J2060; J2270; J2543; J3490; J7040